=== PATIENT | female | born 1935 | race Caucasian/White ===

== ENCOUNTER 2023-07-01 19:24 | Emergency (ER) | payer MEDICARE, SELFPAY ==
--- NOTE | ~2023-07-01 | XR_ITS ---
EXAMINATION: XR chest 2V DATE: 07/01/2023 21:05 INDICATION: Cough. TECHNIQUE: Frontal and lateral views of the chest were obtained. COMPARISON: Chest 2 views 08/03/2016 FINDINGS: There is mild atelectasis in the lower lung zones. No pleural effusion or pneumothorax. The heart size is normal. IMPRESSION: 1. Mild atelectasis in the lower lung zones. Reviewed, dictated and finalized at location [facility]
[2023-07-01 19:27] VITALS: BP 160/72; PULSE 84; RESP 16; TEMP 36.7; O2SAT 94
[2023-07-02] VITALS (9 sets, daily range): BP systolic 127–173; BP diastolic 59–86; PULSE 70–104; RESP 18–28; O2SAT 84–93
--- NOTE | 2023-07-02 | ECG_ITS ---
Measurements Intervals [place] Rate: 73 P: 59 PA: 198 QRS: -31 QRSD: 101 T: 55 QT: 380 QTc: 419 Interpretive Statements SINUS RHYTHM LEFT AXIS DEVIATION INCOMPLETE RIGHT BUNDLE BRANCH BLOCK DELAYED PRECORDIAL R/S TRANSITION BORDERLINE T WAVE ABNORMALITY- ANTERIOR LEADS BASELINE ARTIFACT- I, II, III, AVR, AVL, AVF, V1 BORDERLINE ECG NO PREVIOUS ECG AVAILABLE FOR COMPARISON Electronically Signed On 07-02-2023 6:32:36 TAB BUILDER by Austin Jaime D.O.
--- NOTE | 2023-07-02 02:03 | ED.URI ---
HPI - URI/Sore Throat General Chief Complaint: Upper Respiratory Infection <ROXANA Maldonado Last Filed: 07/03/23 03:13> Stated Complaint: cough <ROXANA Maldonado Last Filed: 07/03/23 03:13> Time Seen by Provider: 07/02/23 01:38 <ROXANA Maldonado Last Filed: 07/03/23 03:13> History of Present Illness HPI Narrative: 88-year-old female with a history of COPD and hypertension presents to the emergency department her family at bedside for cough for the past 11 days. Patient presents with her daughter at bedside to assist with history. Patient states that the onset of symptoms, she went to [facility] emergency department and was sent home with Levaquin. States she took the antibiotic without improvement. She then went to a local urgent care and was sent home with doxycycline and prednisone with improvement. However, states today she began having a worsening cough which prompted her come to the ER. Patient state she did a nebulizer treatment at home prior to arrival which did provide improvement. She denies chest pain, shortness of breath, fever, nausea or vomiting, lower extremity edema or history of CHF. <ROXANA Maldonado Last Filed: 07/03/23 03:13> Related Data Allergies/Adverse Reactions: Allergies Allergy/AdvReac Type Severity Reaction Status Date / Time No Known Allergies Allergy Verified 07/01/23 19:30 <ROXANA Maldonado Last Filed: 07/03/23 03:13> Review of Systems Review of Systems: CONSTITUTIONAL: Denies fever, chills, or sweats. EYES: Denies visual changes, redness, or discharge. ENT: Denies rhinorrhea, congestion, sore throat, or otalgia. CARDIOVASCULAR: Denies chest pain, palpitations, or edema. RESPIRATORY: See HPI GASTROINTESTINAL: Denies abdominal pain, nausea, vomiting, or diarrhea. GENITOURINARY: Denies dysuria or hematuria. SKIN: Denies rash or itching. MUSCULOSKELETAL: Denies back pain, joint pain, or myalgia. NEUROLOGIC: Denies headache, numbness, or weakness. PSYCHIATRIC: Denies anxiety or depression. <ROXANA Maldonado Last Filed: 07/03/23 03:13> Exam Narrative: GENERAL: Well-appearing, well-nourished, and in no acute distress. HEAD: Normocephalic, atraumatic. EYES: PERRLA and EOMI. ENT: Nares clear, no rhinorrhea or epistaxis. Mucous membranes moist. NECK: Supple. CHEST: Expiratory wheezing throughout all lung woods. No rales, no respiratory distress. Patient is satting 94% on room air. HEART: Regular rate and rhythm. No murmur heard. Normal peripheral pulses. ABDOMEN: Soft, nontender, nondistended, normal active bowel sounds. EXTREMITIES: Normal range of motion. No edema. SKIN: Warm, dry, no rash. NEURO: No focal deficits. Alert and oriented x3 <Digna Nair PA-C - Last Filed: 07/03/23 03:13> Course LINE UP EXAMINER/PA Physician Supervision For this patient encounter, I reviewed the LINE UP EXAMINER or PA documentation, treatment plan, and medical decision making and had [id number] time with this patient. I performed all aspects of the MDM as documented. <Mauricio Sullivan MD - Last Filed: 07/02/23 05:11> Vital Signs Vital signs: Vital Signs Temperature 98.0 F 07/01/23 19:27 Pulse Rate 84 07/01/23 19:27 Respiratory Rate 16 07/01/23 19:27 Blood Pressure 160/72 H 07/01/23 19:27 Pulse Oximetry 94 07/01/23 19:27 Oxygen Delivery Room Air 07/01/23 19:27 Temperature 98.0 F 07/01/23 19:27 Pulse Rate 82 07/02/23 05:01 Respiratory Rate 23 H 07/02/23 05:01 Blood Pressure 142/68 H 07/02/23 05:01 Pulse Oximetry 93 07/02/23 05:01 Oxygen Delivery Room Air 07/02/23 02:22 <Digna Nair PA-C - Last Filed: 07/03/23 03:13> Vital Signs Temperature 98.0 F 07/01/23 19:27 Pulse Rate 84 07/01/23 19:27 Respiratory Rate 16 07/01/23 19:27 Blood Pressure 160/72 H 07/01/23 19:27 Pulse Oximetry 94 07/01/23 19:27 Oxygen Delivery Room Air 07/01/23 19:27 Te
[2023-07-02] MEDS: IPRATROPIUM 0.5 MG/ALBUTEROL SULFATE 2.5 MG AMPUL.NEB 3 ML INHALATION ×3 (02:17)
[2023-07-02] MEDS: methylPREDNISolone SOD SUCC 125 MG VIAL IV PUSH (02:25)
[2023-07-02 02:34] LABS: Basophils Percent Auto 0.1 % (0.2-1.2); Hematocrit 38.3 % (37.0-47.0); Hemoglobin 13.3 g/dL (12.0-15.0); Immature Granulocyte Absolute 0.16 K/mm3 (0.00-0.031); Immature Granulocyte Percent A 1.5 % (0-0.5); Lymphocytes Absolute Auto 1.11 K/mm3 (0.9-3.2); Lymphocytes Percent Auto 10.4 % (18.3-44.2); Mean Corpuscular HGB Conc 34.7 g/dl (32-36); Mean Corpuscular Volume 92.3 fl (80-100); Mean Platelet Volume 9.4 fl (7.4-10.4); Monocytes Absolute Auto 0.8 K/mm3 (0.1-0.6); Monocytes Percent Auto 7.1 % (2.6-8.5); Neutrophils Absolute Auto 8.6 K/mm3 (1.3-6.7); Neutrophils Percent Auto 80.9 % (45.5-73.1); Platelet Count Result 352 k/mm3 (150-375); Red Blood Count 4.15 M/mm3 (4.2-5.4); Red Cell Distribution Width 12.6 % (11.5-14.5); White Blood Count 10.6 K/mm3 (4.5-10.0)
[2023-07-02 02:44] LABS: Alanine Aminotransferase 24 U/L (6-35); Albumin Level 4.2 g/dL (3.5-5.1); Alkaline Phosphatase 80 U/L (38-126); Anion Gap 8 mmol/L (8-16); Aspartate Amino Transferase 29 U/L (14-36); Bilirubin,Total 0.5 mg/dL (0.2-1.3); Blood Urea Nitrogen 15 mg/dL (7-17); Carbon Dioxide 24 mmol/L (22-30); Chloride 95 mmol/L (98-107); Estimated CRCL calculation 43 ml/min; Estimated Glomerular Filt Rate > 60; Glucose 150 mg/dL (65-110); Potassium 4.4 mmol/L (3.4-5.0); Sodium 127 mmol/L (137-145)
[2023-07-02] MEDS: SODIUM CHLORIDE 0.9% IV 1,000 ML 999 ML IV CONT (02:59)
[2023-07-02 03:10] LABS: Influenza A QL RT-PCR Positive (Negative); Influenza B QL RT-PCR Negative (Negative); RSV RNA, RT-PCR Negative (Negative); SARS-CoV-2 RNA PCR Negative (Negative)
--- NOTE | 2023-07-02 04:26 | PC.NURSE ---
Pt's sats lower than 90%, and at times 83% on RA. Discussed with ERP. Pt does state she wears O2 PRN at home, and would like to go home however family has questions for ERP. Dr Sullivan notified. O2 2L placed on pt for now and sats now 92%
== END 2023-07-02 05:24 | disposition home or self-care (01) ==
PROVIDERS: Emergency Medicine; Emergency Provider Emergency Medicine; PCP Family Medicine
DX: J44.1 Chronic obstructive pulmonary disease with (acute) exacerbation (principal); E87.1 Hypo-osmolality and hyponatremia; J10.1 Influenza due to other identified influenza virus with other respiratory manifestations; Z20.822 Contact with and (suspected) exposure to COVID-19
CPT/HCPCS: 36415; 71046; 80053; 85025; 87637; 93005; 96361; 96374; 99284; J2930; J7030